=== PATIENT | male | born 1980 | race Two or more races ===

== ENCOUNTER 2025-01-08 10:24 | Emergency (ER) | payer OTHER ==
[~2025-01-08] VITALS: Ht 177.8 cm; Wt 89.0 kg
[2025-01-08] MEDS ORDERED: IBUPROFEN 200 MG/TAB PO ONE (11:10)
[2025-01-08 12:43] VITALS: BP 128/80
== END 2025-01-08 12:45 | disposition home or self-care (01) | DRG 392 ==
LOC: ED 10:24
DX: R10.32 Left lower quadrant pain (principal)